=== PATIENT | female | born 1940 | race Caucasian/White ===

== ENCOUNTER 2019-03-13 08:21 | Inpatient (IN) | payer MEDICARE, OTHER ==
--- NOTE | 2019-03-07 08:57 | HP ---
HISTORY AND PHYSICAL: DATE OF ADMISSION/SURGERY: 03/13/19 DATE OF OFFICE VISIT: 03/06/19 SURGEON: Faith Boyle MD * (DICTATED BY DIVYA SAUCEDA) PROCEDURE: Left total knee arthroplasty. CHIEF COMPLAINT: Left knee pain. HISTORY OF PRESENT ILLNESS: Ms. Chester is a 78-year-old female with end-stage osteoarthritis of the left knee. She has failed conservative treatment and elected to proceed with a left total knee arthroplasty. PAST MEDICAL HISTORY: Asthma, GERD, and renal insufficiency. PAST SURGICAL HISTORY: 1. x3. 2. Cholecystectomy. 3. Tonsillectomy. CURRENT MEDICATION: Pulmicort inhaler as needed. ALLERGIES: PENICILLIN, IBUPROFEN, and BACTRIM. FAMILY HISTORY: Cancer. SOCIAL HISTORY: She is a 78-year-old female. She lives with her . She does not smoke, use drugs, or alcohol. REVIEW OF SYSTEMS: A complete 14-point review of systems was reviewed with the patient, is positive for GERD and asthma. She denies history of DVT, PE, hepatitis, HIV or anesthesia problems. PHYSICAL EXAMINATION GENERAL: She is well developed, well nourished, in no acute distress. VITAL SIGNS: She stands 60 inches tall, weighs 161 pounds. Her blood pressure 130/78 and heart rate 75. HEENT: Normocephalic, atraumatic. NECK: Supple. No palpable lymph nodes. PULMONARY: The lungs are clear to auscultation bilaterally. CARDIO: Regular rate and rhythm. Strong S1, S2. ABDOMEN: Soft, nontender, nondistended. NEUROLOGICAL: She is alert and oriented x3. MUSCULOSKELETAL: Left lower extremity: Skin is intact. There are no open wounds or abrasions. There is some moderate effusion of the left knee joint. Range of motion is 5 to 120 degrees of flexion with patellofemoral crepitus. She is able to dorsiflex and plantar flex. She has a 2+ dorsalis pedis pulse and intact sensation. ASSESSMENT AND PLAN: Ms. Chester is a 78-year-old female with severe end-stage osteoarthritis of the left knee. She has failed conservative treatment and elected to proceed with a left total knee arthroplasty. The surgery is scheduled for 03/13/[address] Boyle discussed the risks and benefits of the surgery at today's visit and all of her questions were answered. She will follow with Dr. Boyle 2 weeks after the surgery. DIVYA SAUCEDA [id number]/[facility] #: [id number] MTDD
[~2019-03-13 08:21] MED LIST: Acetaminophen TAB* 325 MG PO ONE; Buffered Lidocaine 1% SYRIN* 1 ML/SYRINGE INTRADERM ONE; Famotidine IV* 10 MG/ML 2 ML (20 mg) IV ONE; Gabapentin CAP(*) 300 MG PO ONE; Lactated Ringers 1000 ML Bag* 1,000 ML IV SCH; Tranexamic Acid 1,000 MG in NS 0.9% 50 ML* (outpatient use) IV SCH; celeCOXIB CAP* 200 MG PO ONE
[2019-03-13] MEDS ORDERED: Clindamycin 900 MG/D5W BAG(*) 900 MG/50 ML BAG IVPB ONE (09:03)
[2019-03-13] MEDS ORDERED: Gabapentin CAP(*) 300 MG ONE (09:03)
[2019-03-13] MEDS ORDERED: Acetaminophen TAB* 325 MG ONE (09:03)
[2019-03-13] MEDS ORDERED: celeCOXIB CAP* 200 MG ONE (09:03)
[2019-03-13] MEDS ORDERED: Famotidine IV* 10 MG/ML 2 ML (20 mg) ONE (09:04)
[2019-03-13] MEDS ORDERED: Dexamethasone IV* 4 MG/ML 1 ML (4 MG) ONE (09:46)
[2019-03-13] MEDS ORDERED: Lidocaine 2% PF * 5 ML VIAL ONE (09:46)
[2019-03-13] MEDS ORDERED: fentaNYL* 50 MCG/ML 2 ML VIAL (100 MCG VIAL) ONE (09:46)
[2019-03-13] MEDS ORDERED: Propofol* 10 MG/ML 20 ML BTL ONE ×2 (09:46→12:11)
[2019-03-13] MEDS ORDERED: Midazolam* 1 MG/ML 10 ML VIAL (10 MG) ONE (09:46)
[2019-03-13] MEDS ORDERED: Ondansetron INJ* 2 MG/ML VIAL ONE (09:46)
[2019-03-13] MEDS ORDERED: KETAMINE HCL* 50 MG/ML 10 ML VIAL ONE (09:46)
[2019-03-13] MEDS ORDERED: ROPIVACAINE 5 MG/ML 30 ML BTL (0.5%) ONE ×2 (10:06→10:51)
[2019-03-13] MEDS ORDERED: Phenylephrine 40 MCG/ML SYRINGE ONE (12:21)
[2019-03-13] MEDS ORDERED: Phenylephrine 10 MG/ML VIAL* 1 ML VIAL ONE (12:44)
[2019-03-13] MEDS ORDERED: Ketorolac INJ* 30 MG/ML 1 ML VIAL ONE (12:51)
[2019-03-13] MEDS ORDERED: Ondansetron INJ* 2 MG/ML VIAL IV PRN ×2 (13:02→13:51)
[2019-03-13] MEDS ORDERED: Naloxone* 0.4 MG/ML 1 ML VIAL IV PRN (13:02)
[2019-03-13] MEDS ORDERED: fentaNYL* 50 MCG/ML 2 ML VIAL (100 MCG VIAL) IV PRN (13:02)
[2019-03-13] MEDS ORDERED: Phenylephrine 10 MG/ML VIAL* 50 MG in NS 0.9% 250 ML* 245 ML IV PRN (13:16)
[2019-03-13] MEDS ORDERED: Ondansetron ODT TAB* 4 MG PO PRN (13:51)
[2019-03-13] MEDS ORDERED: Magnesium Hydroxide LIQ* 30 ML UDC PO PRN (13:51)
[2019-03-13] MEDS ORDERED: diPHENhydraMINE IV* 50 MG/ML 1 ml VIAL (BENADRYL) IV PRN (13:51)
[2019-03-13] MEDS ORDERED: Cyclobenzaprine TAB* 10 MG PO PRN (13:51)
[2019-03-13] MEDS ORDERED: Acetaminophen TAB* 325 MG PO PRN (13:51)
[2019-03-13] MEDS ORDERED: oxyCODONE TAB* 5 MG TAB PO PRN (13:51)
[2019-03-13] MEDS ORDERED: diPHENhydraMINE PO* 25 MG PO PRN (13:51)
[2019-03-13] MEDS ORDERED: oxyCODONE/Acetamin 5/325 MG* TAB PO PRN (13:51)
[2019-03-13] MEDS ORDERED: Morphine INJ* 2 MG/ML 1 ML SYRINGE (TWO MG - NEW SYRINGE VERSION) IV PRN (13:51)
[2019-03-13] MEDS ORDERED: PTO: Albuterol HFA INHALER* 8 gm MDI INH PRN (13:55)
[2019-03-13] MEDS ORDERED: Famotidine TAB* 20 MG PO PRN (13:55)
[2019-03-13] MEDS ORDERED: Lactated Ringers 1000 ML Bag* 1,000 ML IV SCH (14:00)
--- NOTE | 2019-03-13 15:52 | OP ---
Operative Report - Blank - Operative Report Date of Operation: 03/13/19 Note: JULIA DANG 1940 Date of Surgery: 03/13/19 Faith Boyle MD Director Education: Eliceo STOKES did help throughout the procedure with preparation of the knee, wound retraction, manipulation of the knee, and wound closure. Anesthesiologist: Robson Grewal MD Anesthesia Type: spinal Preoperative Diagnosis: Left severe degenerative osteoarthritis of the knee Postoperative Diagnosis: As above Procedure Performed: Left Total Knee Arthroplasty Tourniquet time: 34 minutes Complications: None Specimen: Bone and cartilage from the left knee joint sent to pathology. Hardware Used: Cemented Champagne and Nephew total knee hardware was used - For the femur a size 5 left narrow legion posterior stabilized femoral component, for the tibia a size 3 left jemal II tibial baseplate, for the insert a size 11mm 3-4 posterior stabilized articular polyethylene insert, and for the patella a size 32 3-peg all poly patella. Brief History/Indication: JULIA DANG was known in clinic and had a history of severe left knee pain and swelling. She failed conservative treatment with anti-inflammatories, pain pills, intra-articular injections and physical therapy. She elected to undergo left total knee arthroplasty due to continued pain and decreased quality of life. Radiographs showed severe end stage osteoarthritis of the knee with bone on bone contact. Informed consent was obtained from the patient. She understood the risks of surgery included but were not limited to: bleeding, infection, damage to nearby structures, intraoperative fracture, nerve palsy, failure of the hardware, early loosening, knee stiffness or loss of motion, anesthesia complications, stroke, heart attack , blood clot and . She wished to proceed. Intra-Operative Findings: Intraoperatively the patient was noted to have severe loss of cartilage in all 3 compartments of the knee. Description of the Procedure: JULIA DANG was identified in the preanesthesia unit. Her left knee was marked as the correct operative side. Informed consent was signed and placed in the chart. The patient was taken to the operating room and placed under anesthesia without complication. A serrano catheter was placed. A tourniquet was placed on the left thigh. The left lower extremity was prepped and draped in the usual sterile fashion. Preoperative time-out was made to correctly identify the patient, side and site. Appropriate intraoperative antibiotics were given within one hour of incision. Tourniquet was inflated. A midline incision was made and carried sharply down to the extensor mechanism. A new 10 blade was used to make a standard medial parapatellar arthrotomy. The patella was subluxed laterally. Electrocautery was used to dissect soft tissue off the superomedial tibia to the midsagittal plane. The knee was flexed up. The anterior horn of the lateral meniscus and the ACL were sharply incised. A drill was used to enter the distal femur. The intramedullary distal femoral cutting guide was pinned on the distal femur. The oscillating saw was used to make the distal femoral cut. The external rotation guide was pinned on the distal femur and the distal femur was sized to a size 5. The size 5 multi-cutting jig was pinned on the distal femur. The oscillating saw was used to make the appropriate 4 chamfer cuts. Next the PCL was completely released. The extramedullary tibial cutting guide was pinned on the proximal tibia and the oscillating saw was used to make the proximal tibial cut perpendicular to the mechanical axis of the tibia. The bone was carefully removed. The knee was brought out into full extension. The spacer block was placed and had excellent fit with the knee in full extension. The medial and lateral ligaments were well balanced. The flexion and extension gaps were well balanced. The knee was flexed up. Lamina waste management specialist was placed both medially and laterally. Any remaining meniscus was removed with electrocautery. Curved osteotome was used to remove any posterior osteophytes. The tibial tray and drop kavon were placed and confirmed a satisfactory tibial cut. The size 5 left femoral trial was impacted onto the distal femur. This trial had excellent fit and stability. The box for the posterior stabilized implant was prepared using a box cut osteotome and a reamer. Next a tibial tray trial and 9 mm insert trial was placed. The knee was taken through a range of motion and had full extension to 130 degrees of flexion. Patellofemoral tracking was satisfactory. The patella was inverted and sized to a size 32. Three peg holes were drilled through the size 32 drill guide. The trial patella was placed and the knee was taken through a range of motion. There was satisfactory patellofemoral tracking. All trials were removed. The tibia was subluxed anteriorly and sized to a size 3. The proximal tibial was prepared with a size 3 keel punch. All bony cut surfaces were irrigated with sterile saline and dried. Final implants were cemented into place starting with the tibia, followed by the femur, and last the patella. A 11 mm insert trial was placed and the knee was brought into full extension. Tourniquet was turned down and the knee was copiously irrigated with sterile saline. Electrocautery was used to obtain meticulous hemostasis. Once the cement had fully cured, the insert trial was removed. Any excess cement was removed from around the hardware and capsule. Final insert chosen was a 11 mm posterior stabilized Jemal II articular insert size 3-4. Stability of the insert was checked and noted to be stable. The extensor mechanism was closed using number 1 vicryls. The rest of the incision was closed in a layered fashion using 0 and 2-0 vicryls. The skin was closed using 3-0 nylon suture. Sterile xeroform, 4x4s and webril were used to cover the incision. Filiberto wrap and cold pack were used to cover the dressings. The patients anesthesia was reversed without difficulty. She was taken to the PACU in stable condition. Intended weight-bearing will be as tolerated.
--- NOTE | 2019-03-13 16:18 | PN ---
Progress Note - Progress Note Date of Service: 03/13/19 SOAP: Subjective: [Pt sleeping in bed. She is easy to rouse but returns to sleep.] Vital Signs Temp 97.9 F 03/13/19 15:31 Pulse 64 03/13/19 15:31 Resp 14 03/13/19 15:31 BP 156/74 03/13/19 15:31 Pulse Ox 96 03/13/19 15:31 Intake & Output 03/12/19 03/13/19 03/13/19 18:59 06:59 18:59 Intake Total 1900 Output Total 690 Balance 1210 Weight 159 lb 6 oz Intake: IV Fluids 1900 LR 1900 Output: Harris 690 Assessment: [POD 0 LTKA] Plan: [PT/OT Pain Medication Eliquis for DVT prophylaxis Dressing change POD 2 BP has been consistently high. Although the pt has no headaches of vision changes. Hospitalists consulted. ]
[2019-03-13] MEDS ORDERED: oxyCODONE/Acetamin 5/325 MG* TAB ONE (17:17)
[2019-03-13] MEDS: oxyCODONE/Acetamin 5/325 MG* TAB PO PRN (17:20)
[2019-03-13] MEDS: Clindamycin 600 MG/D5W BAG(*) 600 MG/50 ML BAG IV SCH (18:19)
--- NOTE | 2019-03-13 19:31 | CONS ---
CC: Dr. Goode; Dr. Faith Boyle * CONSULTATION REPORT: DATE OF CONSULT: 03/13/19 PRIMARY CARE PROVIDER: Dr. Goode. CONSULTING PROVIDER: Dr. Faith Boyle. MY ATTENDING WHILE IN THE HOSPITAL: Dr. Anuja Carreon. REASON FOR CONSULT: Co-management of comorbid medical conditions. HISTORY OF PRESENT ILLNESS: Ms. Chester is a 78-year-old female with past medical history significant for osteoarthritis, asthma, GERD and renal insufficiency, who presented today for an elective left knee replacement due to end-stage osteoarthritis. The patient has not had any illness before her surgery. The patient had mild swelling in her bilateral lower extremities, worse in the affected leg that resolved with recumbency. The patient did not have any difficulty breathing lying flat. No dyspnea on exertion. No fevers, chills, nausea, vomiting, dysuria. No sick contacts. No recent changes to her medications. The patient after the surgery is feeling drowsy, just starting to develop some pain in her knee after the block has been wearing off. She has postnasal drip and a dry mouth, but otherwise has no complaints. The patient has no history of hypertension that she knows of and actually has low blood pressure generally. The patient did previously take a large amount of aspirin for her pain in 2014 and developed what she calls GERD, but may have possibly been a gastric ulcer at that time, which resolved with treatment. The patient is otherwise doing well postoperatively. PAST MEDICAL HISTORY: Asthma, GERD, renal insufficiency, end-stage osteoarthritis. PAST SURGICAL HISTORY: x3, tonsillectomy, cholecystectomy. MEDICATIONS: Pulmicort inhaler as needed. The patient was previously on famotidine. ALLERGIES: PENICILLIN, IBUPROFEN, BACTRIM, LIPITOR, CAFFEINE. FAMILY HISTORY: The patient's mother of lymphoma. The patient's has an aunt who of colon cancer, a grandmother who of uterine cancer, a brother who had renal failure of unknown etiology, and grandmother and father who had diabetes. SOCIAL HISTORY: The patient is a 78-year-old female, who works as a intranet support. She lives with her . She does not smoke, use illicit drugs or drink alcohol. Her surrogate decision maker will be her daughter, Talisha Chester. REVIEW OF SYSTEMS: A 10-point review of systems was reviewed and is negative except as above in the HPI. PHYSICAL EXAM: General: The patient is a 78-year-old female, who appears stated age and sitting comfortably in the bed, in no acute distress. Vital Signs: Temperature 97.4, pulse rate 68, respiratory rate 16, oxygen saturation 95% on room air, blood pressure 157/64. HEENT: Head normocephalic, atraumatic. Sclerae anicteric. No conjunctival injection. Nasal mucosa moist. Oral mucosa moist. No pharyngeal erythema, discharge, or exudate. Neck : Supple, nontender. No lymphadenopathy. No carotid bruits auscultated. No JVD. Cardiac: Regular rate and rhythm. No clicks, murmurs, gallops, or rubs. Pulses are 2+ in the bilateral dorsalis pedis, posterior tibialis, and radial areas. Trace bilateral lower extremity edema noted. Respiratory: Clear to auscultation bilaterally. No wheezes, rales, or rhonchi. Good air exchange bilaterally. Abdomen: Soft, nontender, nondistended. Bowel sounds present and normoactive in all 4 quadrants. No hepatosplenomegaly. No abdominal bruits auscultated. No hepatojugular reflux. Genitourinary: No suprapubic or CVA tenderness. Skin: Clean, dry, and intact. No rash. Left knee incision covered in bulky dressing, not visualized. Neuro: Cranial nerves II through XII intact. Diminished sensation in bilateral lower extremities consistent with nerve block. No other focal deficits. Alert and oriented x3. Psychiatric : Pleasant and cooperative. DIAGNOSTIC STUDIES/LAB DATA: Preoperative laboratory data: White blood cell count 7.2, hemoglobin 13.4. Sodium 144, potassium 4.3, chloride 107, carbon dioxide 27, calcium 9.4, albumin 4.4, BUN 21, creatinine 1.0, glucose 86. Protein 7.9. Bilirubin 0.5, AST 62, ALT 47, alkaline phosphatase 104. GFR estimated at 33. Studies: Knee x-ray read as status post left knee arthroplasty. ASSESSMENT AND PLAN: Impression: Ms. Chester is a 78-year-old female with past medical history significant for asthma, gastroesophageal reflux disease, renal insufficiency, who is status post left total knee replacement, who is doing well and was noted to be hypertensive postoperatively. 1. Postoperative state. Management per Orthopedics. The patient should have PT/OT and have her Harris removed as soon as possible. Bowel regimen. DVT prophylaxis with Eliquis. Monitoring of her H and H as is already ordered. 2. Hypertension. The patient has mild hypertension postoperatively. The patient has no history of hypertension, actually hypotension generally. This will be monitored closely and the patient should likely be discharged on lisinopril given noted diagnosis of renal insufficiency if her blood pressure remains persistently elevated. 3. Asthma. PRN albuterol inhaler. 4. Gastroesophageal reflux disease. Continue the patient's famotidine. 5. Renal insufficiency. Check BMP in the morning. The patient has chronic kidney disease, stage 3A. 6. FEN: The patient will have a regular unrestricted diet and fluids until able to take in adequate intake by mouth. 7. DVT prophylaxis: Apixaban. 8. Disposition: Per Orthopedics. TIME SPENT: Approximately 45 minutes was spent on this consultation, 25 of which was spent [id number] with the patient obtaining history and physical and discussing treatment plan. This plan was discussed with my attending, Dr. Anuja Careron, and she is in agreement. Thank you very much for this interesting consultation on this very nice woman. We will continue to follow along with you. DIVYA BELL [id number]/[facility] #: [id number] REKHA
[2019-03-13] MEDS ORDERED: Mometasone 220 MCG MDI INH SCH (21:00)
[2019-03-13] MEDS ORDERED: PTO: Budesonide Flexhaler 180 (NF) 180 MCG/ACT MDI INH SCH (21:20)
[2019-03-13] MEDS: Docusate CAP* 100 MG PO SCH (22:53)
[2019-03-13] MEDS: Magnesium Hydroxide LIQ* 30 ML UDC PO SCH (22:53)
[2019-03-14] MEDS: Clindamycin 600 MG/D5W BAG(*) 600 MG/50 ML BAG IV SCH ×2 (02:02→10:10)
[2019-03-14 06:12] LABS: Hematocrit 42 % (35-47); Hemoglobin 13.7 g/dL (12.0-16.0); Mean Platelet Volume 9.2 fL (7.4-10.4); Platelet Count 159 10^3/uL (150-450)
[2019-03-14 06:33] LABS: CO2 Carbon Dioxide 23 mmol/L (22-32); Calcium 9.4 mg/dL (8.6-10.3); Chloride 105 mmol/L (101-111); Sodium 136 mmol/L (135-145)
[2019-03-14 06:39] LABS: BUN/Creatinine Ratio 18.6 (8-20); Blood Urea Nitrogen 22 mg/dL (6-24); EGFR African American 53.5 (>60); EGFR Non-African American 44.2 (>60); Glucose 153 mg/dL (70-100)
[2019-03-14 06:41] LABS: Anion Gap 8 mmol/L (2-11)
[2019-03-14] MEDS: oxyCODONE/Acetamin 5/325 MG* TAB PO PRN ×4 (07:23→21:26)
[2019-03-14] MEDS: Vitamin THERAPEUTIC TAB PO SCH (08:03)
[2019-03-14] MEDS: Docusate CAP* 100 MG PO SCH ×2 (08:08→21:26)
[2019-03-14] MEDS: Magnesium Hydroxide LIQ* 30 ML UDC PO SCH ×2 (08:08→21:26)
[2019-03-14] MEDS: Apixaban* 2.5 MG TAB PO SCH ×2 (08:08→21:26)
--- NOTE | 2019-03-14 08:31 | PN ---
Progress Note - Progress Note Date of Service: 03/14/19 SOAP: Subjective: resting comfortably in bed, no complaints of pain Objective: Vital Signs Temp Pulse Resp BP Pulse Ox 97.6 F 61 16 139/56 94 03/14/19 07:53 03/14/19 07:53 03/14/19 07:53 03/14/19 07:53 03/14/19 07:53 Laboratory Last Values Hgb 13.7 g/dL (12.0-16.0) 03/14/19 05:55 Hct 42 % (35-47) 03/14/19 05:55 Plt Count 159 10^3/uL (150-450) 03/14/19 05:55 MPV 9.2 fL (7.4-10.4) 03/14/19 05:55 Sodium 136 mmol/L (135-145) 03/14/19 05:55 Potassium 4.7 mmol/L (3.5-5.0) 03/14/19 06:58 Chloride 105 mmol/L (101-111) 03/14/19 05:55 Carbon Dioxide 23 mmol/L (22-32) 03/14/19 05:55 Anion Gap 8 mmol/L (2-11) 03/14/19 05:55 BUN 22 mg/dL (6-24) 03/14/19 05:55 Creatinine 1.18 mg/dL (0.51-0.95) H 03/14/19 05:55 Est GFR ( Amer) 53.5 (>60) 03/14/19 05:55 Est GFR (Non-Af Amer) 44.2 (>60) 03/14/19 05:55 BUN/Creatinine Ratio 18.6 (8-20) 03/14/19 05:55 Glucose 153 mg/dL (70-100) H 03/14/19 05:55 Calcium 9.4 mg/dL (8.6-10.3) 03/14/19 05:55 incision: c/d/i PE: able to DF/PF, 2+ DP pulse and intact sensation Assessment: s/p right TKA; POD#1 Plan: 1) PT/OT- WBAT 2) ABX FOR 24 HOURS 3) Eliquis bid for DVT prophylaxis 4) plan home tomorrow
[2019-03-15] MEDS: oxyCODONE/Acetamin 5/325 MG* TAB PO PRN ×3 (02:20→12:44)
[2019-03-15 06:28] LABS: Hematocrit 34 % (35-47); Hemoglobin 11.4 g/dL (12.0-16.0); Platelet Count 166 10^3/uL (150-450)
[2019-03-15] MEDS: Apixaban* 2.5 MG TAB PO SCH (09:47)
[2019-03-15] MEDS: Vitamin THERAPEUTIC TAB PO SCH (09:47)
[2019-03-15] MEDS: Magnesium Hydroxide LIQ* 30 ML UDC PO SCH (09:47)
[2019-03-15] MEDS: Docusate CAP* 100 MG PO SCH (09:47)
--- NOTE | 2019-03-15 11:03 | DS ---
Orthopedic Discharge Summary - Discharge Summary Date of Admission:03/13/19 Date of Discharge: 03/15/19 Date of Surgery: 03/13/19 Attending Orthopedic Provider: Dr Boyle Pre-operative Diagnosis: Right knee osteoarthritis Operative Procedure: right total knee replacement Disposition of Patient: home with visiting nurse and in home PT Condition of Patient: stable History: JULIA DANG is a 78 year old F with years of increasingly severe right knee pain. Patient has failed conservative management and has elected to undergo a right total knee replacement Hospital Course: JULIA was admitted to [facility] on 03/13/19. Patient underwent a right total knee replacement without complication followed by a brief recovery in PACU and transfer to the Short Stay Surgical Unit in stable condition. Our hospitalist service, physical therapy also participated in this patients care. Post-op day 1: patient was alert and in no acute distress. Dressing was clean, dry and intact. Operative extremity dorsiflexion and plantarflexion intact, sensation intact to light touch distally, DP2+. Post- op day two: Patient felt well with well controlled pain. Denied CP, SOB, dizziness or nausea. She appears well, dressing was changed, incision was clean , dry and intact, NVI distally. Patient was deemed to be medically and orthopedically stable for discharge. Hospitalist service recommends home nursing follow her blood pressure which was intermittently elevated. Her PCP can determine if she needs to start antihypertensive medications. Physical therapy goals were met. Home Medications Medication Instructions Recorded Confirmed Type Albuterol HFA INHALER* [Ventolin 1 - 2 puff INH Q4H PRN 03/06/19 03/06/19 History HFA Inhaler*] Budesonide Flexhaler 180 (NF) 180 mcg IN BEDTIME 03/06/19 03/13/19 History [Pulmicort Flexhaler 180 mcg/act (NF)] Famotidine 40 mg PO BEDTIME PRN 03/06/19 03/06/19 History Acetaminophen TAB* [Tylenol TAB*] 650 mg PO Q8HR PRN tab 03/15/19 Rx Apixaban* [Eliquis*] 2.5 mg PO BID #60 tab 03/15/19 Rx Docusate CAP* [Colace Cap*] 100 mg PO BID PRN #90 cap 03/15/19 Rx oxyCODONE/Acetamin 5/325 MG* 1 tab PO Q4H PRN tab MDD 10 03/15/19 Rx [Percocet 5/325 TAB*] oxyCODONE/Acetamin 5/325 MG* 2 tab PO Q4H PRN #70 tab MDD 10 03/15/19 Rx [Percocet 5/325 TAB*] Discharge Instructions following Orthopedic Surgery: Activity: * Weight Bearing as tolerated * Continue physical therapy and occupational therapy exercises as shown * Home PT Wound care: * OK to shower on post-op day 3, no bathing, swimming, or submerging wound. * Use gentle soap, pat dry. Cover with gauze, ANITA wrap or tape. * Visiting home nurse to do wound checks. Please have visiting nurse check your blood pressure. It was intermittently elevated during your hospital stay. Need for antihypertensive medication to be determined by your PCP. Call Orthopedic office for: * Increased drainage * Redness * Increased pain * Fever Go to ER with shortness of breath or chest pain. Diet: * Regular diet * Increase fluids and fiber to prevent constipation. * Continue to use stool softeners, call office if no bowel motion within 48 hours. Medications See Home Medication List in your packet for medications that you should take after discharge. DVT Prophylaxis: Eliquis Dosin.5 mg, 1 tab every 12 hours x 30 days. Increases bleeding tendency Pain Control: Percocet Dosin/325 mg 1-2 tabs by mouth every 4-6 hours as needed for pain. Maximum of 10 tabs per day. Hold for sedation, wean off as soon as pain allows Please note that Percocet contains Tylenol (acetaminophen). Maximum daily dose of Tylenol is 4000 mg from all sources. Antibiotics are required prior to any dental work. FOLLOW UP: Follow up with [[place]] Within 10-14 days, call for appointment Please call our office with any questions or concerns ([phone]) [facility] Vital Signs Temp 98.1 F 03/15/19 08:44 Pulse 72 03/15/19 08:44 Resp 16 03/15/19 08:44 BP 140/65 03/15/19 08:44 Pulse Ox 96 03/15/19 08:44 Intake & Output 03/14/19 03/15/19 03/15/19 18:59 06:59 18:59 Intake Total 480 1200 0 Output Total 1000 500 Balance 480 200 -500 Intake: Oral 480 1200 0 Output: Urine 1000 500 Other: Estimated Void Medium # Bowel Movements 0 # Voids 1 Vital Signs 03/14/19 03/14/19 03/14/19 12:15 12:43 14:15 Temperature 97.5 F Pulse Rate 58 Respiratory 16 16 16 Rate Blood Pressure 130/65 (mmHg) O2 Sat by Pulse 97 Oximetry 03/14/19 03/14/19 03/14/19 15:38 16:58 18:44 Temperature 97.4 F Pulse Rate 68 Respiratory 16 16 16 Rate Blood Pressure 120/58 (mmHg) O2 Sat by Pulse 96 Oximetry 03/14/19 03/14/19 03/14/19 20:45 21:26 21:29 Temperature 97.7 F Pulse Rate 62 Respiratory 16 16 16 Rate Blood Pressure 118/58 (mmHg) O2 Sat by Pulse 93 Oximetry 03/14/19 03/15/19 03/15/19 23:33 01:00 02:20 Temperature 97.7 F Pulse Rate 74 Respiratory 16 16 20 Rate Blood Pressure 142/64 (mmHg) O2 Sat by Pulse 98 Oximetry 03/15/19 03/15/19 03/15/19 04:37 04:44 06:16 Temperature 97.9 F Pulse Rate 58 Respiratory 16 16 16 Rate Blood Pressure 161/60 (mmHg) O2 Sat by Pulse 95 Oximetry 03/15/19 03/15/19 03/15/19 06:20 06:28 08:44 Temperature 98.1 F Pulse Rate 72 Respiratory 16 16 16 Rate Blood Pressure 140/65 (mmHg) O2 Sat by Pulse 96 Oximetry
[2019-03-15 12:00] VITALS: BP 137/51
[2019-03-15] MEDS ORDERED: Bisacodyl SUPP* 10 MG SUPP PR PRN (13:51)
== END 2019-03-15 14:45 | disposition home health service (06) | DRG 470 ==
LOC: OR 08:21 → SSU 15:30
PROVIDERS: ADMIT Orthopaedic Surgery Adult Reconstructive Orthopaedic Surgery; ATTEND Orthopaedic Surgery Adult Reconstructive Orthopaedic Surgery
PROC: 0SRD0J9 Replacement of Left Knee Joint with Synthetic Substitute, Cemented, Open Approach (ICD-10-PCS; principal; 2019-03-13 10:00)
DX: M17.12 Unilateral primary osteoarthritis, left knee (principal); J45.909 Unspecified asthma, uncomplicated; K21.9 Gastro-esophageal reflux disease without esophagitis; M19.042 Primary osteoarthritis, left hand; M19.041 Primary osteoarthritis, right hand; M25.762 Osteophyte, left knee; E78.00 Pure hypercholesterolemia, unspecified; E78.5 Hyperlipidemia, unspecified; N18.9 Chronic kidney disease, unspecified; M47.812 Spondylosis without myelopathy or radiculopathy, cervical region; Z88.0 Allergy status to penicillin; Z88.6 Allergy status to analgesic agent; Z88.1 Allergy status to other antibiotic agents; Z88.8 Allergy status to other drugs, medicaments and biological substances
CPT/HCPCS: 36415; 80048; 85014; 85018; 85049; 88305; 88311; 94640; A9270-GY; C1776; G8978-GP-CK; G8979-GP-CI; J1100; J1885; J2250; J2405; J2704; J2795; J3010